=== PATIENT | male | born 1990 | race African-American/Black ===

== ENCOUNTER 2017-10-29 03:36 | Emergency (ER) | payer SELFPAY ==
[~2017-10-29] VITALS: Ht 172.7 cm; Wt 87.0 kg
[2017-10-29] MEDS ORDERED: ONDANSETRON HCL 4 MG/2 ML VIAL IVP ONE (03:45)
[2017-10-29] MEDS ORDERED: MORPHINE SULFATE 4 MG/ML SYRINGE IVP ONE (03:45)
[2017-10-29] MEDS ORDERED: PERTUSS(ACELL),DIPH,TET VAC/PF 0.5 ML VIAL IM ONE (03:45)
[2017-10-29] MEDS ORDERED: CeFAZolin 1 GM/DEXTROSE 50 ML IV ONE (03:45)
[2017-10-29 03:57] VITALS: BP 111/72
[2017-10-29] MEDS ORDERED: CeFAZolin SODIUM 1 GM in DEXTROSE 5%-WATER 10 ML IV ONE (04:00)
== END 2017-10-29 04:29 | disposition short-term general hospital (02) ==
LOC: EMS 03:38
DX: S41.011A Laceration without foreign body of right shoulder, initial encounter (principal); S31.114A Laceration without foreign body of abdominal wall, left lower quadrant without penetration into peritoneal cavity, initial encounter; W26.0XXA Contact with knife, initial encounter; Y93.89 Activity, other specified; Y92.89 Other specified places as the place of occurrence of the external cause; Y99.8 Other external cause status
CPT/HCPCS: 71045; 90471; 90715; 96365; 96375; 99285; J0690; J2270; J2405; J7060